=== PATIENT | male | born 1935 ===

== ENCOUNTER 2021-04-23 07:16 | Emergency (ER) | payer MEDICARE ==
[2021-04-23] MEDS ORDERED: SODIUM CHLORIDE 0.9% 1000 ML 1,000 ML IV ONE (07:44)
--- NOTE | 2021-04-23 07:53 | Emergency Department Report ---
ED Altered Mental Status HPI - General Stated Complaint: ALTERED MENTAL STATUS, FOUND SLEEPING IN FLOOR Time Seen by Provider: 04/23/21 07:43 Source: EMS - History of Present Illness Initial Comments: Patient is 85 years old male, detention patient with history of Parkinson disease and dementia and psychosis according to the EMS report. Patient brought to the emergency room via EMS for evaluation of altered mental status. EMS stated that patient was found on the floor. Patient is obtunded not responding only to painful stimuli. Patient with ecchymosis to the left orbital area and abrasion to the left leg. Patient is not communicating. According to EMS report that patient usually walk by himself and answer questions. EMS stated that patient blood glucose was 163. Vital signs otherwise stable and patient is 100% saturation on room air. MD Complaint: altered mental status, confusion, decreased responsiveness -: unknown ED Review of Systems ROS: Stated complaint: ALTERED MENTAL STATUS, FOUND SLEEPING IN FLOOR Other details as noted in HPI Comment: Unobtainable due to pts medical conditions ED Physical Exam - General General appearance: obtunded - Head Head exam: Present: other (Left periorbital ecchymosis and swelling.) - Eye Pupils: Present: miosis - ENT ENT exam: Present: mucous membranes dry - Neck Neck exam: Present: normal inspection. Absent: tenderness, meningismus - Respiratory Respiratory exam: Present: normal lung sounds bilaterally - Cardiovascular Cardiovascular Exam: Present: bradycardia - GI/Abdominal GI/Abdominal exam: Present: soft, normal bowel sounds. Absent: distended, tenderness, guarding, rebound, rigid, organomegaly, mass, bruit, pulsatile mass, hernia - Extremities Exam Extremities exam: Present: other (Abrasion to the left leg.) - Back Exam Back exam: Absent: paraspinal tenderness, vertebral tenderness - Neurological Exam Neurological exam: Present: altered - Psychiatric Psychiatric exam: Present: flat affect - Skin Skin exam: Present: warm, abrasion ED Course Vital Signs 04/23/21 04/23/21 04/23/21 07:46 08:01 08:15 Temperature Pulse Rate 57 L 57 L Respiratory 13 13 13 Rate Blood Pressure 142/64 142/64 O2 Sat by Pulse 99 98 100 Oximetry 04/23/21 04/23/21 08:55 09:03 Temperature 97.2 F L Pulse Rate 60 Respiratory 12 Rate Blood Pressure 142/64 O2 Sat by Pulse Oximetry - Reevaluation(s) Reevaluation #1: 04/23/21 09:20 Patient is still obtunded and not responding even to painful stimuli. Patient vital sign however is stable with an oxygen saturation 99% on room air. I discussed the patient with his daughter Kadie and his granddaughter Annika with the phone number [phone]. 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 She stated that he had colon surgery with colostomy but he has reversion done at [facility] 1 year ago. She stated that he was on Eliquis for atrial fibrillation but they discontinue Eliquis last year because he was no longer in A. fib. She stated that she visited him yesterday and he was walking and talking but he was confused. I informed her about his critical condition with massive subarachnoid hemorrhage and the need for in tubation and further intervention and he asked about his living lamar she stated that she has a power of [employer] and they want everything to be done. She stated that he followed by [facility] and she would like asked to try [facility] first. - Consultations Consultation #1: 04/23/21 09:36 Patient discussed with [facility] as requested by the family however they stated that they do not have any ICU bed and they are on saturation. 04/23/21 09:37 I discussed the patient with [facility] and she stated that she will talk to the neurosurgeon and safety equipment tester and give me a call back. Consultation #2: 04/23/21 09:52 Through [facility] I discussed the patient with Dr. Moreno, neurosurgeon and Dr. Unger, neuro safety equipment tester and they both accepted the patient to be transfer. Advised to add Keppra and TXA. - Intubation Sedative: Etomidate Mg Given: 20 Paralytic: Rocuronium Mg Given: 50 Laryngoscope: [place] Size: 4 ET Tube Size: 7.5 Tube Secured Location: teeth Tube Placement Confirmation: visualized tube passing t, equal breath sounds bilat, no breath sounds over epi, confirmation by capnometr Patient Tolerated Procedure: well, no complications Intubation Complications: none - Lab Data Lab Results 04/23/21 Range/Units 09:01 Ammonia 28.0 (25-60) umol/L - Radiology Data Radiology results: report reviewed - Medical Decision Making Patient is 85 years old male, detention patient with history of Parkinson disease and dementia and psychosis according to the EMS report. Patient brought to the emergency room via EMS for evaluation of altered mental status. EMS stated that patient was found on the floor. Patient is obtunded not responding only to painful stimuli. Patient with ecchymosis to the left orbital area and abrasion to the left leg. Patient is not communicating. According to EMS report that patient usually walk by himself and answer questions. EMS stated that patient blood glucose was 163. Vital signs otherwise stable and patient is 100% saturation on room air. Patient GCS level now is 7. Patient intubated for airway protection. Through [facility] I discussed the patient with Dr. Moreno, neurosurgeon and Dr. Unger, neuro safety equipment tester and they both accepted the patient to be transfer. Advised to add Keppra 1 g IV and TXA 1 g IV.. Critical Care Time: Yes Critical care time in (mins) excluding proc time.: 45 Critical care attestation.: If time is entered above; I have spent that time in minutes in the direct care of this critically ill patient, excluding procedure time. ED Disposition Clinical Impression: Acute spontaneous subarachnoid intracranial hemorrhage, Altered mental status, Fall Disposition: 51 HOSPICE/MEDICAL FACILITY Is pt being admited?: No Condition: Stable Referrals: [facility] [Other] - 3-5 Days
--- NOTE | 2021-04-23 08:35 | XRay Report ---
XR hip 2-3V LT INDICATION / CLINICAL INFORMATION: fall. COMPARISON: None available. FINDINGS: BONES/JOINT(S): No acute fracture or subluxation. Mild DJD of both hips. SOFT TISSUES: No significant abnormality. ADDITIONAL FINDINGS: None. Signer Name: Raphael Ramos MD Signed: 04/23/2021 8:30 AM Workstation Name: [id number]
--- NOTE | 2021-04-23 08:35 | XRay Report ---
CHEST 1 VIEW 04/23/2021 8:02 AM INDICATION / CLINICAL INFORMATION: Altered Mental Status. COMPARISON: None available. FINDINGS: SUPPORT DEVICES: None. HEART / MEDIASTINUM: No significant abnormality. LUNGS / PLEURA: No significant pulmonary or pleural abnormality. No pneumothorax. ADDITIONAL FINDINGS: No significant additional findings. IMPRESSION: 1. No acute findings. Signer Name: Raphael Ramos MD Signed: 04/23/2021 8:30 AM Workstation Name: [id number]
--- NOTE | 2021-04-23 09:07 | Cat Scan Report ---
CT FACIAL 04/23/2021 HISTORY: FALL, FACIAL TRAUMA. FINDINGS: CT images of the facial bones were obtained. Images are evaluated in the axial, coronal, an d sagittal plane. There is no evidence of acute osseous injury. Paranasal sinuses are clear. There is significant intracranial abnormality, reported separately on the head CT report. IMPRESSION: No evidence of acute facial fracture or osseous abnormality. All CT scans at this location are performed using dose reduction to ALARA by means of automated expos ure control. Signer Name: Carlos Enrique Kern MD Signed: 04/23/2021 9:02 AM Workstation Name: [id number]
--- NOTE | 2021-04-23 09:12 | Cat Scan Report ---
CT cervical spine wo con INDICATION: NECK INJURY. TECHNIQUE: Axial CT images of the cervical spine were obtained. Sagittal and coronal reformatted images were pro duced. All CT scans at this location are performed using CT dose reduction for ALARA by means of auto mated exposure control. COMPARISON: None available. FINDINGS: ALIGNMENT: Reversal of lordosis. VERTEBRAE: Fusion of the C2, C3, C4 vertebral bodies an articulating pillars. No fracture. Vertebral body heights are preserved. C1 and C2 are congruent. SPONDYLOSIS: Mild multilevel spondylosis. Cystic degenerative changes of the odontoid process. SOFT TISSUES: No significant soft tissue abnormality. ADDITIONAL FINDINGS: No significant additional findings. IMPRESSION: 1. No fracture of the cervical spine. Signer Name: Rafael Wilson MD Signed: 04/23/2021 9:07 AM Workstation Name: [id number]
--- NOTE | 2021-04-23 09:14 | Cat Scan Report ---
CT BRAIN: 04/23/2021 INDICATION / CLINICAL INFORMATION: Altered Mental Status. COMPARISON: None available. FINDINGS: BRAIN/INTRACRANIAL STRUCTURES: Unenhanced CT images of the brain demonstrate extensive subarachnoid h emorrhage, with subarachnoid hemorrhage most prominent in the anterior interhemispheric fissure, with additional subarachnoid hemorrhage also present in the left basilar cisterns extending into the post erior fossa, with hemorrhage present and sulci over the cerebral convexities bilaterally. Small amoun t of blood products are seen layering in the occipital horns of lateral ventricles. This pattern is suspicious for aneurysmal hemorrhage, and seems more extensive than would be expected from posttraumatic hemorrhage. EXTRACRANIAL STRUCTURES: Unremarkable. IMPRESSION: Critical diffuse subarachnoid hemorrhage as described above. Positive critical result: Time of discovery: 0900 hours ET Notification: [address] Thakur in the emergency department All CT scans at this location are performed using dose reduction to ALARA by means of automated expos ure control. Signer Name: Carlos Enrique Kern MD Signed: 04/23/2021 9:10 AM Workstation Name: [id number]
[2021-04-23] MEDS ORDERED: ROCURONIUM 50 MG/5 ML INJ IV ONE (10:05)
[2021-04-23] MEDS ORDERED: ETOMIDATE 20 MG/10 ML INJ IV ONE (10:06)
[2021-04-23] MEDS ORDERED: levETIRAcetam 1000 MG/NS 0.75% 1,000 MG/100 ML BAG IV NR (10:30)
[2021-04-23] MEDS ORDERED: MIDAZOLAM 2 MG/2 ML INJ IV PRN (10:30)
[2021-04-23 10:45] LABS: Basophils % (Auto) 0.2 % (0.0-1.8); Hematocrit 32.3 % (35.5-45.6); Hemoglobin 10.3 gm/dl (11.8-15.2); Lymphocytes # (Auto) 0.4 K/mm3 (1.2-5.4); Mean Corpuscular HGB Conc 32 % (32-34); Mean Corpuscular Volume 87 fl (84-94); Monocytes # (Auto) 0.5 K/mm3 (0.0-0.8); Monocytes % (Auto) 8.9 % (0.0-7.3); Red Blood Count 3.74 M/mm3 (3.65-5.03); Red Cell Distribution Width 14.3 % (13.2-15.2)
[2021-04-23 10:46] LABS: Platelet Count 63 K/mm3 (140-440)
--- NOTE | 2021-04-23 10:50 | Cat Scan Report ---
CTA NECK WITH CONTRAST 04/23/2021 INDICATION / CLINICAL INFORMATION: stroke OMNI 350 100 ML. COMPARISON: None. TECHNIQUE: Routine CTA of the neck is performed. 3-D/MIP reformats were postprocessed. Percentage st enosis is determined by direct quantitative measurements of diseased internal carotid artery diameter compared with normal distal internal carotid artery reference segments or by criteria similar to CHRIS CET where applicable. All CT scans at this location are performed using CT dose reduction for ALARA b y means of automated exposure control. CONTRAST: 100 ml of Omnipaque 350 FINDINGS: Carotid bifurcations: There is no evidence of carotid bifurcation stenosis. Carotid arteries: No significant abnormality. Cervical vertebral arteries: No significant abnormality. Aortic arch: No significant abnormality. None. IMPRESSION: No significant abnormality. Signer Name: Carlos Ernique Kern MD Signed: 04/23/2021 10:45 AM Workstation Name: [id number]
--- NOTE | 2021-04-23 10:50 | XRay Report ---
XR chest 1V ap INDICATION / CLINICAL INFORMATION: ETT placement. COMPARISON: Radiograph from earlier same day. FINDINGS: SUPPORT DEVICES: Endotracheal tube terminates in the midtrachea. Enteric catheter extends below the d iaphragm, out of the [id number]. HEART /PULMONARY VASCULATURE: No significant abnormality. LUNGS / PLEURA: Lungs are clear. No pneumothorax. IMPRESSION: Satisfactory position of endotracheal tube. Signer Name: Jamaal Torres MD Signed: 04/23/2021 10:46 AM Workstation Name: [id number]
--- NOTE | 2021-04-23 10:55 | Cat Scan Report ---
CTA HEAD WITH CONTRAST 04/23/2021 HISTORY: STROKE OMNI 350 100 ML. Subarachnoid hemorrhage COMPARISON: None. TECHNIQUE: All CT scans at this location are performed using CT dose reduction for ALARA by means of automated exposure control.. 3-D/MIP reformats postprocessed. Percentage stenosis is determined by d irect quantitative measurements of diseased internal carotid artery diameter compared with normal dis moshe internal carotid artery reference segments or by criteria similar to NASCET where applicable. CONTRAST: 100 ml of Omnipaque 350 FINDINGS: As seen on the earlier head CT, diffuse subarachnoid hemorrhage is present. There is no CT angiographic evidence of aneurysm at this time. CTA HEAD: Intracranial vertebral arteries: No significant abnormality. Basilar artery: No significant abnormality. Posterior cerebral arteries: No significant abnormality. Intracranial internal carotid arteries: No significant abnormality. Anterior cerebral arteries: There is some possible narrowing and irregularity of the middle cerebral arteries bilaterally, left greater than right. This may be due to vasospasm associated with the diffu se subarachnoid hemorrhage which has been previously noted by head CT. Middle cerebral arteries: No significant abnormality. Dural venous sinuses:Not optimally opacified. No significant abnormality. Additional findings: None. IMPRESSION: There is no CT angiographic evidence of aneurysm. Possible vascular narrowing suggesting vasospasm. Signer Name: Carlos Enrique Kern MD Signed: 04/23/2021 10:51 AM Workstation Name: [id number]
[2021-04-23] MEDS ORDERED: MIDAZOLAM 100 MG in SODIUM CHLORIDE 0.9% 80 ML IV SCH (11:00)
[2021-04-23] MEDS ORDERED: TRANEXAMIC ACID 1,000 MG in SODIUM CHLORIDE 0.9% 100 ML IV NR (11:00)
[2021-04-23 11:07] LABS: Alanine Aminotransferase 9 units/L (7-56); Albumin 3.7 g/dL (3.9-5); BUN/Creatinine Ratio 27; Blood Urea Nitrogen 24 mg/dL (9-20); Calcium 8.7 mg/dL (8.4-10.2); Hemolysis Index 42
[2021-04-23 11:09] LABS: Bilirubin,Direct < 0.2 mg/dL (0-0.2)
[2021-04-23 11:29] LABS: INR 1.35 (0.87-1.13); Partial Thromboplastin Time 34.9 Sec. (24.2-36.6)
[2021-04-23] MEDS ORDERED: SODIUM CHLORIDE 0.9% 1000 ML 1,000 ML ONE (11:33)
[2021-04-23 11:44] VITALS: BP 73/39
--- NOTE | 2021-04-24 08:57 | Electrocardiograph Report ---
[facility] Test Date: 2021-04-23 Test Time: 09:40:56 Pat Name: LOCO HANNON Department: Room: Gender: M Manager Residential: GP : [id number] Requested By: VALE HUNG Order Number: [id number] Reading MD: Satinder Dockery Measurements Intervals [place] Rate: 59 P: 44 PA: 178 QRS: 30 QRSD: 107 T: -6 QT: 443 QTc: 440 Interpretive Statements Sinus rhythm Minimal ST depression, diffuse leads No previous ECG available for comparison Electronically Signed On 04-24-2021 8:57:00 EST by Satinder Dockery
== END 2021-04-23 12:00 | disposition hospice, inpatient (51) ==
LOC: ED 07:16
DX: I60.7 Nontraumatic subarachnoid hemorrhage from unspecified intracranial artery (principal); S05.12XA Contusion of eyeball and orbital tissues, left eye, initial encounter; G20 Parkinson's disease; F02.80 Dementia in other diseases classified elsewhere, unspecified severity, without behavioral disturbance, psychotic disturbance, mood disturbance, and anxiety; R41.82 Altered mental status, unspecified; Z79.899 Other long term (current) drug therapy; W19.XXXA Unspecified fall, initial encounter; Y93.89 Activity, other specified; Y92.89 Other specified places as the place of occurrence of the external cause; Y99.8 Other external cause status
CPT/HCPCS: 31500; 36415; 70450; 70486; 70496; 70498; 71045; 72125; 73502; 80048; 80076; 82140; 82550; 82962; 84443; 84484; 85025; 85610; 85730; 93005; 93010; 96365; 96375; 99291; J1953; J2250; J3490; J7030; Q9967; 94002; Q0162